=== PATIENT | female | born 1955 | race Caucasian/White ===

== ENCOUNTER 2016-08-11 14:06 | Emergency (ER) ==
[2016-08-11] MEDS ORDERED: REGLAN IV ONE (14:53)
[2016-08-11] MEDS ORDERED: NS 500 ML IV ONE (14:53)
[2016-08-11] MEDS ORDERED: PHENERGAN IV ONE (14:54)
[2016-08-11] MEDS ORDERED: SODIUM CHLORIDE 0.9% INJ ONE (14:54)
--- NOTE | 2016-08-11 14:57 | PROVIDER DOCUMENTATION ---
HPI-Abdominal Pain/GI Problem - General Chief Complaint: Nausea/Vomiting Stated Complaint: n/v Time Seen by Provider: 08/11/16 14:32 Source: patient Allergies/Adverse Reactions: Patient Allergies Allergy/AdvReac Type Severity Reaction Status Date / Time Penicillins Allergy Unknown Verified 08/11/16 17:00 Home Medications: Home Medication List Medication Instructions Recorded Confirmed Last Taken Type Carvedilol [Coreg] 6.25 mg PO BID #30 tablet 09/06/14 08/11/16 08/11/16 10:00 Rx Spironolactone [Aldactone] 12.5 mg PO DAILY #0 tablet 09/06/14 08/11/16 10:00 Rx Esomeprazole [Nexium] 20 mg PO DAILY 04/22/16 08/11/16 08/11/16 09:30 History Furosemide [Lasix] 40 mg PO DAILY 04/22/16 08/11/16 08/11/16 10:00 History LISINOpril [Prinivil] 10 mg PO DAILY 04/22/16 08/11/16 08/11/16 10:00 History Meclizine HCl [Antivert] 25 mg PO PRN PRN 04/22/16 08/11/16 08/10/16 10:00 History Simvastatin 20 mg PO QHS 04/22/16 08/11/16 08/10/16 01:00 History Sucralfate 1 gm PO 4XDAY 04/22/16 08/11/16 08/11/16 10:00 History Tramadol [Ultram] 25 mg PO Q6H PRN PRN 04/22/16 08/11/16 08/10/16 21:00 History Albuterol Sulfate [Proair Hfa] 8.5 gm IH Q6H PRN #3 hfa.aer.ad 04/24/16 Unknown Rx Aspirin EC 81 mg PO EVERY OTHER DAY 08/11/16 08/11/16 08/10/16 10:00 History - History of Present Illness-ABD Nature of Presenting Problems: patient is a 61 y/o F that presents with sudden onset of n/v while at work. denies fever/chills. reports co-workers with similar symptoms. Abdominal Pain Onset Location: reports: generalized abdomen Quality of Pain: reports: aching, cramping Severity in ED: reports: moderate Onset/Duration: reports: abrupt, this afternoon Timing: reports: improving Activities at Onset: reports: none Modifying Factors: improves with: nothing Associated Symptoms: reports: nausea, vomiting. denies: chest pain, diarrhea, fever/chills, genitourinary problems, shortness of breath Similar Symptoms Previously?: No Recently seen or treated by another doctor?: No Review of Systems - Adult - REVIEW OF SYSTEMS - ADULT Constitutional: denies: chills, fever Eyes: reports: no symptoms reported Ears, Nose, Mouth & Throat: denies: ear pain, sinus problem, throat pain, throat swelling Cardiovascular: denies: chest pain, palpitations, syncope Respiratory: denies: cough, shortness of breath, wheezing Gastrointestinal: reports: abdominal pain, nausea, vomiting. denies: constipation, diarrhea, rectal bleeding Genitourinary: reports: no symptoms reported Musculoskeletal: reports: no symptoms reported Integumentary: reports: no symptoms reported Neurological: reports: no symptoms reported Psychiatric: reports: no symptoms reported Endocrine: reports: no symptoms reported Hematologic/Lymphatic: reports: no symptoms reported Allergic/Immunologic: reports: no symptoms reported All Other Systems: Reviewed and Negative Past History - Adult - PAST MEDICAL HISTORY-ADULT Review of Records: reports: Old Records Reviewed, Nursing Assessment Review, Medications Reviewed Cardiovascular: reports: [place] Gastrointestinal: reports: GERD Neurological: reports: TIA Psychiatric: reports: depression - PRIOR SURGERIES/PROCEDURES Surgical/Procedure History: reports: BTL, indwelling device, tonsillectomy, other (stents in delmy lower extremities) - PRIOR HOSPITALIZATIONS Prior Hospitalizations: reports: for other non-related - IMMUNIZATION STATUS Childhood Immunizations: UTD Flu Vaccine: See Nurse Assessment - FAMILY HISTORY Family History: reviewed, not pertinent - SOCIAL HISTORY Smoking: cigarettes, less than 1 pack/day Living Situation: family Physical Exam-General - PHYSICAL EXAM-ADULT Initial Vital Signs Reviewed: Yes - CONSTITUTIONAL General Appearance: alert, no apparent distress - EYES Eyes: PERRL/EOMI, pink conjunctivae - HEAD, EARS, NOSE, MOUTH & THROAT HENMT: normocephalic/atraumatic, moist mucous membranes, normal ENT inspection - NECK Neck: full range of motion, normal inspection - RESPIRATORY Respiratory: lungs clear, normal breath sounds, no respiratory distress, no accessory muscle use - CARDIOVASCULAR Cardiovascular: regular rate, rhythm, no edema, no murmur - GASTROINTESTINAL (ABDOMEN) Abdominal Exam: normal bowel sounds, non tender, soft, no organomegaly, no pulsatile mass - MUSCULOSKELETAL Extremity: normal range of motion, normal inspection, no pedal edema - SKIN Integumentary: normal color, warm/dry - NEUROLOGIC Neurologic: grossly normal, no motor/sensory deficits - PSYCHIATRIC Psych/Mental Status: normal mood/affect, normal thought content, normal thought process, oriented x 3 Progress - PLAN OF CARE/RESULTS Progress/Plan/Lab Results: plan of care-labs, meds Vital Signs Temp Pulse Resp BP Pulse Ox 08/11/16 17:32 60 13 120/70 08/11/16 17:06 63 12 08/11/16 16:25 74 17 127/66 08/11/16 14:39 97.8 F 64 17 132/75 100 Penicillins Allergy (Verified 08/11/16 17:00) Unknown Carvedilol [Coreg] 6.25 mg PO BID #30 tablet 09/06/14 Spironolactone [Aldactone] 12.5 mg PO DAILY #0 tablet 09/06/14 Esomeprazole [Nexium] 20 mg PO DAILY 04/22/16 Furosemide [Lasix] 40 mg PO DAILY 04/22/16 LISINOpril [Prinivil] 10 mg PO DAILY 04/22/16 Meclizine HCl [Antivert] 25 mg PO PRN PRN 04/22/16 Simvastatin 20 mg PO QHS 04/22/16 Sucralfate 1 gm PO 4XDAY 04/22/16 Tramadol [Ultram] 25 mg PO Q6H PRN PRN 04/22/16 Albuterol Sulfate [Proair Hfa] 8.5 gm IH Q6H PRN #3 hfa.aer.ad 04/24/16 Aspirin EC 81 mg PO EVERY OTHER DAY 08/11/16 I&O 08/10/16 08/11/16 08/12/16 06:59 06:59 06:59 Output Total 100 Balance -100 Laboratory 08/11/16 08/11/16 08/11/16 16:12 16:12 16:12 WBC Cancelled RBC Cancelled Hgb Cancelled Hct Cancelled MCV Cancelled MCH Cancelled MCHC Cancelled RDW Std Deviation Cancelled Plt Count Cancelled MPV Cancelled Immature Gran % (Auto) Cancelled Neut % (Auto) Cancelled Lymph % (Auto) Cancelled [place] % (Auto) Cancelled Eos % (Auto) Cancelled Baso % (Auto) Cancelled Immature Gran # (Auto) Cancelled Neut # (Auto) Cancelled Lymph # (Auto) Cancelled [place] # (Auto) Cancelled Eos # (Auto) Cancelled Baso # (Auto) Cancelled Corrected WBC (Man) Cancelled Sodium 140 Potassium 4.0 Chloride 100 Carbon Dioxide 25 Anion Gap 15 BUN 18 Creatinine 1.1 H Estimated GFR/1.73 m2 50 BUN/Creatinine Ratio 16 Glucose 110 H Calculated Osmolality 282 Calcium 9.2 Total Bilirubin 0.46 AST 16 ALT 16 Alkaline Phosphatase 123 H Total Protein 7.3 Albumin 4.2 Globulin 3.1 Albumin/Globulin Ratio 1.4 Amylase 37 Lipase 15 Orders Category Date Time Status AMYLASE [CHEM] Stat Lab 08/11/16 16:12 Completed CBC WITH ELECTRONIC DIFF [HEME] Routine Lab 08/11/16 16:22 Ordered CMP [COMPREHENSIVE METABOLIC PANEL] [CHEM] Stat Lab 08/11/16 16:12 Completed LIPASE [CHEM] Stat Lab 08/11/16 16:12 Completed 0.9% Sodium Chloride Inj [Ns] 500 ml Med 08/11/16 14:53 Discontinued IV 999 mls/hr Metoclopramide [Reglan] Med 08/11/16 14:53 Discontinued 5 mg IV NOW ONE Promethazine [Phenergan] Med 08/11/16 14:54 Discontinued 12.5 mg IV NOW ONE Sodium Chloride 0.9% Med 08/11/16 14:54 Discontinued 10 ml INJ NOW ONE EKG [EKG] Stat Ther 08/11/16 15:03 Ordered EKG [EKG] Stat Ther 08/11/16 15:53 Ordered pt will be d/c home f/u with pcp, rx given, pt feeling better, pt was clinically stable - REASSESSMENT Reassessment #1 Time Reassessed: 17:47 Status: improving Reassessment Comment: feeling better, d/c home - EKG 1 Time of EKG reading by physician:: 15:14 EKG Read and Signed by:: Jayson Rod EKG Interpretation (*Must complete 3 of following elements*): Abnormal Rate: 60 Rhythm: NSR [place]: normal QRS: LBB MO Interval: normal ST Wave: normal Departure - Departure Time of Disposition Order: 17:47 DIAGNOSIS: Nausea and vomiting in adult patient Disposition: HOME 01 Certified Medical Emergency: Emergent Condition: Stable Additional Instructions: ED Follow Up Instructions: You have been treated by a care provider in the Emergency Department. These instructions are being provided to you so you can have an understanding of how to care for yourself upon discharge. Upon discharge from the Emergency Department, you are responsible for making arrangements for follow-up care by a physician of your choice. Take all prescribed medications as directed. Return to the Emergency Department immediately for any new or worsening symptoms. You may call the Physician Referral phone number at [phone] to obtain a list of Physicians who are taking new patients. Referrals: Barbara Mayfield MD [Primary Care Provider] - Call for Appoint. 1-2days Instructions: Nausea, Adult Attestation - Scribe Verification/Attestation Scribe:: Jean Marie Gonclaves Acting as Scribe for:: Jayson Rod Scribe documention review:: This chart was documented by a scribe and accurately reflects the service the provider performed and the decisions made by the provider. Physician Attestation - Physician Attestation I, the provider, attest to the following statement:: Jayson Rod Physician documentation Attestation:: This documentation recorded by the scribe accurately reflects the service I personally performed and the decisions made by me.
[2016-08-11 16:34] LABS: BASO% 0.2 % (0.0-0.8); EOS# 0.09 X1000 (0.0-0.7); HEMATOCRIT 40.4 % (37.0-47.0); HEMOGLOBIN 13.4 g/dL (12.0-16.0); LYMPH# 1.37 X1000 (1.2-3.4); LYMPH% 15.1 % (20.5-51.1); MANUAL DIFF NEEDED? NO; MCH 30.3 PG (27-31); MCHC 33.2 g/dL (33-37); MCV 91.4 FL (81-99); MONO# 0.31 X1000 (0.11-0.59); MONO% 3.4 % (1.7-9.3); MPV 11.8 FL (7.4-10.4); NEUT% 80.3 % (42.2-75.2); PLT 169 X1000 (130-400); RBC 4.42 XMIL (4.2-5.4)
[2016-08-11 16:36] LABS: AMYLASE 37 U/L (20-200); LIPASE 15 U/L (13-60)
[2016-08-11 16:55] LABS: ALBUMIN 4.2 g/dL (3.5-5.0); CALCIUM 9.2 mg/dL (8.8-10.2); TOTAL BILIRUBIN 0.46 mg/dL (0.20-1.00); TOTAL PROTEIN 7.3 g/dL (6.3-8.3)
[2016-08-11 18:14] VITALS: BP 109/64
--- NOTE | 2016-08-12 05:22 | EKG Report ---
Test Performed on : 08/11/2016 4:12:47 PM Test Reason : N/V Blood Pressure : / mmHG Vent. Rate : 075 BPM Atrial Rate : 075 BPM P-R Int : 154 ms QRS Dur : 152 ms QT Int : 474 ms P-R-T Axes : 047 -10 090 degrees QTc Int : 529 ms Normal sinus rhythm. Left bundle branch block Abnormal ECG When compared with ECG of 22-APR-2016 00:42, Vent. rate has decreased BY 52 BPM Unconfirmed Result
== END 2016-08-11 18:57 | disposition home or self-care (01) ==
LOC: EDBD → ED 14:06 → SUPCPDRO 14:06 → ED 18:57
DX: R11.2 Nausea with vomiting, unspecified (principal); R94.31 Abnormal electrocardiogram [ECG] [EKG]; R10.84 Generalized abdominal pain; I25.2 Old myocardial infarction; K21.9 Gastro-esophageal reflux disease without esophagitis; F17.210 Nicotine dependence, cigarettes, uncomplicated; Z79.82 Long term (current) use of aspirin; Z79.899 Other long term (current) drug therapy; Z86.73 Personal history of transient ischemic attack (TIA), and cerebral infarction without residual deficits
CPT/HCPCS: 80053; 82150; 83690; 85025; 93005; J2550; J2765; J7040